=== PATIENT | female | born 1965 | race Caucasian/White ===

== ENCOUNTER → 2017-08-16 | Outpatient (CLI) | payer OTHER | LOC: RAD 14:59 | DX: Z12.31 Encounter for screening mammogram for malignant neoplasm of breast (principal) ==

== ENCOUNTER → 2018-07-31 | Outpatient (CLI) | payer OTHER | LOC: RAD 10:43 | DX: Z12.31 Encounter for screening mammogram for malignant neoplasm of breast (principal) ==

== ENCOUNTER → 2019-07-19 | Outpatient (CLI) | payer OTHER | LOC: CAT 11:57 | DX: Z13.6 Encounter for screening for cardiovascular disorders (principal); E78.00 Pure hypercholesterolemia, unspecified; I25.10 Atherosclerotic heart disease of native coronary artery without angina pectoris ==

== ENCOUNTER → 2019-07-19 | Outpatient (CLI) | payer OTHER | LOC: RAD 12:34 | DX: Z12.31 Encounter for screening mammogram for malignant neoplasm of breast (principal) ==

== ENCOUNTER → 2019-07-22 | Outpatient (CLI) | payer OTHER | LOC: NUC 09:11 | DX: M85.88 Other specified disorders of bone density and structure, other site (principal); Z78.0 Asymptomatic menopausal state ==

== ENCOUNTER 2019-11-15 12:06 | Emergency (ER) | payer OTHER ==
[~2019-11-15] VITALS: Ht 160 cm; Wt 67.6 kg
[2019-11-15] MEDS ORDERED: ONZETRA XSAIL11 MG PO (12:36)
[2019-11-15 12:40] LABS: ABSOLUTE NEUTROPHILS 4.5 thou/uL (1.4-8.2); BASOPHILS 0.4 % (0.0-2.0); EOSINOPHILS 0.2 % (0.0-3.0); HEMATOCRIT 42.2 % (37.0-47.0); HEMOGLOBIN 14.1 gm/dL (12.0-15.0); LYMPHOCYTES 16.1 % (24.0-44.0); MCH 31.6 pg (26.0-34.0); MCHC 33.3 g/dL (28.0-37.0); PLATELET COUNT 236 thou/uL (150-400); POLYS 79.3 % (36.0-66.0); RBC 4.44 mil/uL (4.20-5.00); WBC 5.7 thou/uL (4.0-11.0)
[2019-11-15] MEDS ORDERED: ESTRADIOL COMPOUND (12:40)
[2019-11-15 12:50] LABS: CALCIUM 9.3 mg/dL (8.5-10.1); CREATININE 0.8 mg/dL (0.6-1.0); POTASSIUM 3.7 mmol/L (3.5-5.1)
[2019-11-15] MEDS ORDERED: NICOTINE TRANSD14 M1 TRANSDERM (13:13)
[2019-11-15 17:12] VITALS: BP 103/68
== END 2019-11-15 17:22 | disposition home or self-care (01) ==
LOC: ER 12:06
PROVIDERS: Emergency Medicine
DX: R51 Headache (principal); Z87.891 Personal history of nicotine dependence

== ENCOUNTER 2020-03-07 11:22 | Emergency (ER) | payer OTHER ==
[~2020-03-07] VITALS: Ht 160 cm; Wt 64.4 kg
[~2020-03-07 11:22] MED LIST: ESTRADIOL COMPOUND; NICOTINE TRANSD14 M1 TRANSDERM; ONZETRA XSAIL11 MG PO
[2020-03-07 12:23] LABS: ABSOLUTE NEUTROPHILS 6.4 thou/uL (1.4-8.2); BASOPHILS 0.6 % (0.0-2.0); EOSINOPHILS 0.8 % (0.0-3.0); HEMATOCRIT 40.3 % (37.0-47.0); HEMOGLOBIN 13.7 gm/dL (12.0-15.0); LYMPHOCYTES 20.7 % (24.0-44.0); MCH 32.4 pg (26.0-34.0); MCHC 33.9 g/dL (28.0-37.0); MCV 95.5 fL (80.0-100.0); MONOCYTES 6.8 % (1.0-8.0); PLATELET COUNT 274 thou/uL (150-400); POLYS 71.1 % (36.0-66.0); RBC 4.22 mil/uL (4.20-5.00); RDW 13.1 % (10.5-14.5)
[2020-03-07 12:25] LABS: URINE BILIRUBIN NEGATIVE (Negative); URINE BLOOD NEGATIVE (Negative); URINE CLARITY CLEAR; URINE COLOR YELLOW; URINE GLUCOSE-RANDOM* NEGATIVE (Negative); URINE KETONES NEGATIVE (Negative); URINE LEUKOCYTES-REFLEX NEGATIVE (Negative); URINE NITRITE-REFLEX NEGATIVE (Negative); URINE PROTEIN (DIPSTICK) TRACE (Negative); URINE SPECIFIC GRAVITY 1.015 (1.005-1.035); URINE UROBILINOGEN 0.2 E.U./dl (0.2-1.0)
[2020-03-07 12:30] LABS: ANION GAP 8 mmol/L (7-16); BUN 9 mg/dL (7-18); CALCIUM 8.4 mg/dL (8.5-10.1); CHLORIDE 104 mmol/L (98-107); CO2 28 mmol/L (21-32); CREATININE 0.8 mg/dL (0.6-1.0); GLUCOSE 90 mg/dL (74-106); POTASSIUM 4.1 mmol/L (3.5-5.1); SODIUM 140 mmol/L (136-145)
[2020-03-07 12:42] LABS: AMP/METHAMP Negative (Negative); BARBITURATES Negative (Negative); BENZODIAZEPINES Negative (Negative); COCAINE Negative (Negative); METHADONE Negative (Negative); OPIATES Negative (Negative); PCP Negative (Negative)
[2020-03-07 12:49] LABS: ALBUMIN 3.8 g/dL (3.4-5.0); SGOT 19 U/L (15-37); SGPT 19 U/L (30-65); TOTAL BILIRUBIN 0.4 mg/dL (<0.1-1.0); TOTAL PROTEIN 7.3 g/dL (6.4-8.2); TROPONIN-I <0.06 ng/mL (<0.06)
[2020-03-07 14:02] VITALS: BP 104/65
--- NOTE | 2020-03-08 12:03 | EKG ---
[facility] [place] [address] ELECTROCARDIOGRAM REPORT Name: BEATA RANGEL Room #: DEP [facility]#: [id number] Admission: 03/07/20 Attend Phys: Discharge: 03/07/20 Date of : 67 Report #: [id number] THIS REPORT FOR: cc: Uriel Barnett Steven F. DO Park, Jin S. MD ~ THIS REPORT FOR: //name// [facility] ED Test Date: 2020-03-07 Test Time: 12:27:52 Pat Name: BEATA RANGEL Department: Room: Gender: F [place]: [place] : 1965 Requested By: Tenisha Motley Order Number: [id number] MD: John Phelps Measurements Intervals [place] Rate: 70 P: 49 OR: 115 QRS: 76 QRSD: 90 T: 54 QT: 410 QTc: 443 Interpretive Statements Sinus rhythm Borderline short OR interval Baseline wander in lead(s) V2 No previous ECG available for comparison Electronically Signed On 03-08-2020 12:01:44 CDT by John Phelps [email or web address] <ELECTRONICALLY SIGNED> By: John Phelps MD 03/08/20 1201 1227 122 John Phelps MD /JOAN
== END 2020-03-07 14:03 | disposition home or self-care (01) ==
LOC: ER 11:22
PROVIDERS: Physician Assistant
DX: R55 Syncope and collapse (principal); R10.30 Lower abdominal pain, unspecified; H53.8 Other visual disturbances; R07.89 Other chest pain; M54.5 Low back pain; Z90.49 Acquired absence of other specified parts of digestive tract; Z98.51 Tubal ligation status; Z79.899 Other long term (current) drug therapy; Z87.891 Personal history of nicotine dependence; Z87.442 Personal history of urinary calculi

== ENCOUNTER → 2020-08-11 | Outpatient (CLI) | payer OTHER | LOC: RAD 14:47 | PROVIDERS: ATTEND Neuromusculoskeletal Medicine & OMM | DX: Z12.31 Encounter for screening mammogram for malignant neoplasm of breast (principal) ==

== ENCOUNTER → 2020-09-25 | Outpatient (CLI) | payer OTHER | LOC: LAB 10:56 | PROVIDERS: ATTEND Nurse Practitioner | DX: Z20.828 Contact with and (suspected) exposure to other viral communicable diseases (principal) ==

== ENCOUNTER 2021-06-07 09:42 | Emergency (ER) | payer OTHER ==
[~2021-06-07] VITALS: Ht 157.5 cm; Wt 72.6 kg
[2021-06-07 10:25] LABS: URINE BILIRUBIN NEGATIVE (Negative); URINE BLOOD NEGATIVE (Negative); URINE CLARITY CLEAR; URINE COLOR YELLOW; URINE GLUCOSE-RANDOM* NEGATIVE (Negative); URINE KETONES NEGATIVE (Negative); URINE LEUKOCYTES-REFLEX NEGATIVE (Negative); URINE NITRITE-REFLEX NEGATIVE (Negative); URINE PROTEIN (DIPSTICK) NEGATIVE (Negative); URINE SPECIFIC GRAVITY <= 1.005 (1.005-1.035); URINE UROBILINOGEN 0.2 E.U./dl (0.2-1.0)
[2021-06-07 11:32] LABS: ABSOLUTE NEUTROPHILS 2.5 thou/uL (1.4-8.2); BASOPHILS 0.9 % (0.0-2.0); EOSINOPHILS 2.6 % (0.0-3.0); HEMATOCRIT 42.6 % (37.0-47.0); HEMOGLOBIN 14.2 gm/dL (12.0-15.0); LYMPHOCYTES 40.4 % (24.0-44.0); MCH 31.8 pg (26.0-34.0); MCHC 33.3 g/dL (28.0-37.0); MCV 95.6 fL (80.0-100.0); PLATELET COUNT 251 thou/uL (150-400); POLYS 47.1 % (36.0-66.0); RBC 4.46 mil/uL (4.20-5.00); RDW 13.1 % (10.5-14.5); WBC 5.2 thou/uL (4.0-11.0)
[2021-06-07 11:38] LABS: CREATININE 0.7 mg/dL (0.6-1.0)
[2021-06-07 11:44] LABS: ALBUMIN 3.9 g/dL (3.4-5.0); TOTAL BILIRUBIN 0.6 mg/dL (0.2-1.0); TOTAL PROTEIN 7.2 g/dL (6.4-8.2)
[2021-06-07 13:42] VITALS: BP 91/71
== END 2021-06-07 13:42 | disposition home or self-care (01) ==
LOC: ER 09:42
PROVIDERS: Emergency Medicine
DX: R10.33 Periumbilical pain (principal); Z98.51 Tubal ligation status; Z90.49 Acquired absence of other specified parts of digestive tract; Z79.899 Other long term (current) drug therapy; Z87.891 Personal history of nicotine dependence

== ENCOUNTER → 2021-08-09 | Outpatient (CLI) | payer OTHER | LOC: RAD 08:20 | PROVIDERS: ATTEND Neuromusculoskeletal Medicine & OMM | DX: Z12.31 Encounter for screening mammogram for malignant neoplasm of breast (principal); N64.89 Other specified disorders of breast ==